=== PATIENT | male | born 1960 | race Caucasian/White ===

== ENCOUNTER 2018-07-28 17:16 | Emergency (ER) | payer BC ==
[~2018-07-28] VITALS: Ht 172.7 cm; Wt 108.9 kg
[2018-07-28] MEDS: SODIUM CHLORIDE 0.9% 1000ML 1,000 ML IV SCH ×2 (18:30→19:44)
[2018-07-28] MEDS: METOPROLOL TARTRATE INJ 1 MG/ML VIAL IV ONE ×2 (18:50→19:43)
--- NOTE | 2018-07-28 19:28 | Diagnostic Imaging Report ---
EXAMINATION: Head CT without contrast. HISTORY:Dizziness. COMPARISON:None. TECHNIQUE: Multidetector axial images were obtained from the foramen magnum to the vertex without contrast. The images were reconstructed using brain and bone algorithms. Thin section brain images were reformatted into coronal and sagittal planes. Dose modulation, iterative reconstruction, and/or weight based adjustment of the mA/kV was utilized to reduce the radiation dose to as low as reasonably achievable. Intravenous contrast: None IMAGE QUALITY: Acceptable. FINDINGS: Skull/scalp: No lytic or blastic. lesions. No surgical changes. Parenchyma: No abnormal density. No acute hemorrhage, mass or acute major vascular territorial infarct. Arteries: No density suggestive of thrombosis. Dural sinuses: No abnormal density suggestive of thrombosis. Ventricles: No hydrocephalus or displacement. Extra-axial spaces: No abnormal density. Brain volume: Mild generalized cerebral volume loss. Craniocervical junction: No mass, Chiari malformation, or basilar invagination. Sella: No mass. Paranasal/mastoid sinuses: Mild polypoid mucosal thickening in right maxillary sinus. Mild to moderate mucosal thickening in bilateral ethmoid sinuses. Partial opacification of left mastoid air cells. IMPRESSION: No acute intracranial abnormality. Mild generalized cerebral volume loss. Signed by: Dr. Monica Mooney M.D. on 07/28/2018 7:25 PM
[2018-07-28 21:00] VITALS: BP 156/94
== END 2018-07-28 21:07 | disposition home or self-care (01) ==
LOC: FSED 17:16
DX: R42 Dizziness and giddiness (principal)
CPT/HCPCS: 36415; 70450; 80053; 82553; 82948; 84484; 85025; 85379; 93005; 99284; J7030

== ENCOUNTER 2021-11-04 10:43 | Emergency (ER) | payer BC ==
[~2021-11-04] VITALS: Ht 172.7 cm; Wt 111.1 kg
[2021-11-04] MEDS ORDERED: NAPROSYN500 MG PO (12:16)
[2021-11-04] MEDS ORDERED: CYCLOBENZAPRINE5 MG PO (12:16)
== END 2021-11-04 12:46 | disposition home or self-care (01) ==
LOC: FSED 11:18
DX: R07.89 Other chest pain (principal); S20.212A Contusion of left front wall of thorax, initial encounter; X50.1XXA Overexertion from prolonged static or awkward postures, initial encounter; I10 Essential (primary) hypertension; M10.9 Gout, unspecified; Z95.810 Presence of automatic (implantable) cardiac defibrillator
CPT/HCPCS: 71101; 99283